=== PATIENT | female | born 1985 | race Caucasian/White ===

== ENCOUNTER 2017-06-30 20:42 | Observation (INO) ==
[2017-06-30] MEDS ORDERED: Sodium Chloride 0.9% 500 ML PRIMARY IV ONE (20:53)
[2017-06-30] MEDS ORDERED: Sodium Chloride 0.9% 1,000 ML PRIMARY IV ONE ×2 (20:53→22:58)
[2017-06-30] MEDS ORDERED: ONDANSETRON 4 MG/2 ML VIAL IVP ONE (20:53)
--- NOTE | 2017-06-30 21:00 | PDOC ---
Female Problem HPI - General Chief Complaint: Vag Complaint/Bleed, <20WK IUP Stated Complaint: POSSIBLE MISCARRIAGE Date Seen by Provider: 06/30/17 Time Seen by Provider: 20:55 Source: POSITIVE: Patient Exam Limitations: POSITIVE: No limitations Nurse's Notes Reviewed & Considered: Yes - Record Incomplete - History of Present Illness Body Location Affected: REPORTS: Genitalia Timing: REPORTS: Abrupt Duration: 1/2 hour Severity: Severe Quality: REPORTS: Cramping, "Pain" Context: REPORTS: Other (Known demise) Location of Pain: REPORTS: Pelvic Cramping Vaginal Bleeding: REPORTS: Abnormal Bleeding, More Severe Than Periods, Passing Clots : REPORTS: Other ( demise at 12 weeks gestation) Sexual History: REPORTS: Active Urinary Symptoms: DENIES: Blood in Urine, Frequent Urination, Discomfort w/ Urination, Burning w/ Urination, Urinary Urgency, Painful Urination, Other Discharge: REPORTS: Vaginal Discharge (Heavy vaginal bleeding) Similar Symptoms Previously: No Recent Care Received: REPORTS: Recently Seen (Was seen earlier today by her health coordinator in [facility], Dr. Onur Moseley) Any Prior Injuries Related to Current Complaint?: No - Patient Home Medications Home Medications: Home Medications NK [NK] 06/30/17 - Patient Allergies Allergies/Adverse Reactions: Allergies 3 Allergy/AdvReac Type Severity Reaction Status Date / Time No Known Allergies Allergy Verified 06/30/17 21:24 ROS - Limitations ROS Limitations: No Limitations Constitution: REPORTS: Chills Cardiovascular: REPORTS: Denies Cardiac Symptoms Respiratory: REPORTS: Denies Resp Symptoms Neurological: REPORTS: Denies Neuro Symptoms Gastrointestinal: REPORTS: Abdominal Pain Endocrine: REPORTS: Denies Symptoms Musculoskeletal: REPORTS: Denies MS Symptoms Genitourinary: REPORTS: Other (Heavy vaginal bleeding) Eyes: REPORTS: Denies Symptoms ENT: REPORTS: Denies Symptoms Skin: REPORTS: Other ( Skin and pale conjunctivae) Lympathic: REPORTS: Denies Lympathic Symptoms Immunologic: POSITIVE: Denies Symptoms Psychiatric: POSITIVE: Denies Psych Symptoms Female Genitourinary Exam - General Appearance General Appearance: POSITIVE: Alert, Cooperative, No Evidence of Trauma, Lethargic - HEENT HEENT: POSITIVE: Head Inspection Nml, Ears Inspection Nml, Nose Inspection Nml, Oral/Dental Inspect. Nml, Pharynx Inspect. Nml, PERRL, EOMI, Pale Conjunctivae - Neck Neck: POSITIVE: Normal Inspection, No Apparent Injury - Respiratory Respiratory: POSITIVE: No Respiratory Distress, Breath Sounds Normal, Chest Non- Tender - Cardiovascular Cardiovascular: POSITIVE: Regular Rate and Rhythm, Heart Sounds Normal, Equal Pulses, Strong Pulses Peripheral Pulses: Radial (R): 3+, Radial (L): 3+ - Abdomen Abdomen: POSITIVE: Soft, Normal Bowel Sounds, Tenderness (Suprapubic tenderness) - Skin Skin: POSITIVE: Intact, Diaphoresis, Pallor - Extremities Extremity: Non-Tender: (All Extremities), Normal ROM: (All Extremities), Normal Inspection: (All Extremities), Pelvis Stable: (All Extremities) - Neurological / Psychological Neurological: POSITIVE: Oriented X3, Motor Normal, Sensation Normal Female Genitourinary Progress - Results Reviewed by me Xrays/CTs/US Reviewed by me: Yes Discussed with Radiologist: Yes Lab Results Reviewed by Me: Yes CBC and BMP: 07/01/17 06:10 06/30/17 20:50 - Patient's Progress Pain Medication Addressed: POSITIVE: No Re-Examine Time: 22:35 Status: POSITIVE: Worsened MDM / ED Course: Patient was evaluated, 2 IVs were started, ultrasound was obtained, blood was sent to the lab for studies. Findings: Ultrasound shows large clot in the cervix with retained products of conception present. Initial CBC shows a normal hemoglobin and hematocrit. After 1 L of fluid H&H had dropped to 10.8 and 32.5. Patient had hypotension with a systolic blood pressure of 61, and a pulse rate of 70. Assessment: Missed AB with heavy bleeding and anemia present. Plan: Dr. Denton the on-call OB doctor was contacted he is taking the patient to the OR for indicated procedures. Patient received 2 units of packed red blood cells. Rhogam Given: No - Consult Consult (If Yes, Name of Consulting MD & Time Called): Yes (Dr. Denton ) Consulting MD will see pt:: POSITIVE: In ED Counseled: POSITIVE: Patient, Family, RE: Lab Results, RE: Radiology Results, RE : DX Patient Care Time - Estimated PCT Patient Care Time (In Minutes): 45 Vital Signs - VS Reviewed Vital Signs Reviewed: Yes Discharge Clinical Impression: Miscarriage, Vaginal bleeding before 22 weeks gestation Discharge Disposition: Transferred to OR Condition: Serious Date Decision to Admit to Inpatient: 06/30/17 Time Decision to Admit to Inpatient: 22:00
[2017-06-30 21:14] LABS: BLOOD UREA NITROGEN 11 mg/dL (7-22); BUN/CREATININE RATIO 18.33 (6-20); MAGNESIUM 1.7 mg/dL (1.6-2.4); SERUM ALBUMIN 4.2 g/dL (3.5-4.8)
[2017-06-30 21:19] LABS: Hematocrit [HCT] 38.1 % (37.0-47.0); Hemoglobin [HGB] 12.9 g/dL (12.0-16.0); MEAN CORPUSCULAR HEMOGLOBIN 29.4 PG (27-31); MEAN CORPUSCULAR VOLUME 86.8 FL (81-99); RED BLOOD COUNT 4.39 10^6/uL (4.20-5.40)
[2017-06-30 21:20] LABS: BASOPHILS # (AUTO) 0.03 10*3/UL; BASOPHILS % (AUTO) 0.4 % (0-1); EOSINOPHILS # (AUTO) 0.14 10*3/UL; EOSINOPHILS % (AUTO) 1.7 % (0-8); LYMPHOCYTES # (AUTO) 2.41 10*3/uL; MEAN CORPUSCULAR HGB CONC 33.9 g/dL (33-37); MEAN PLATELET VOLUME 10.5 FL (7.4-12.2); MONOCYTES # (AUTO) 0.73 10*3/UL (0.3-0.8); MONOCYTES % (AUTO) 8.9 % (5-15); NEUTROPHILS # (AUTO) 4.88 10*3/UL; NEUTROPHILS % (AUTO) 59.5 % (50-80); PLATELET MORPHOLOGY COMMENT NORMAL MORPHOLOGY (NORM); RBC MORPHOLOGY COMMENT NORMAL MORPHOLOGY (NORM); WBC MORPHOLOGY COMMENT NORMAL MORPHOLOGY (NORM)
[2017-06-30 21:54] LABS: Hematocrit [HCT] 32.5 % (37.0-47.0); Hemoglobin [HGB] 10.8 g/dL (12.0-16.0)
--- NOTE | 2017-06-30 22:11 | DI ---
EXAM: US After First Trimester, Transabdominal US , Transvaginal CLINICAL HISTORY: Physician Notes: Tech Comments: TECHNIQUE: Real-time transabdominal obstetrical ultrasound of the maternal pelvis and a second or third trimester with image documentation. Endovaginal imaging was used for better evaluation of the fetus and adnexa. COMPARISON: No relevant prior studies available. FINDINGS: No intrauterine is identified. Uterus: Endometrium is thickened, heterogeneous, with echogenic material, possibly clot in the lower uterine segment, perhaps entering the vagina. This has flow. No parts are identified. Adnexa: The ovaries have normal flow. IMPRESSION: No intrauterine identified. There is an echogenic heterogeneous mildly vascular structure in the lower uterine segment extending into the vagina. Perhaps retained products, in progress/incomplete . No parts identified. Correlate with beta hCG. Correlate for possibility of molar . Recommend close continued clinical follow-up with beta hCG, ultrasound, and exam. [employer] 06/30/17 22:08 Call Doctor Regarding Other, called Dr. Paz on 06/30 22:07 (-07:00)
[2017-06-30] MEDS ORDERED: MIDAZOLAM 5 MG/1 ML ONE (22:35)
[2017-06-30] MEDS ORDERED: KETAMINE 100 MG/1 ML - 5 ML ONE (22:35)
[2017-06-30] MEDS ORDERED: fentaNYL Inj 100 MCG/2 ML VIAL ONE (22:35)
[2017-06-30] MEDS ORDERED: LIDOCAINE MPF 2% - 5 ML (20 MG/1 ML) ONE (22:36)
[2017-06-30] MEDS ORDERED: Sodium Chloride 0.9% vial 10 ML ONE ×2 (22:36→22:38)
[2017-06-30] MEDS ORDERED: PROPOFOL 10 MG/1 ML (200 MG/20 ML) VIAL IV ONE (22:37)
[2017-06-30] MEDS ORDERED: PHENYLEPHRINE 10,000 MCG/1 ML VIAL ONE (22:37)
[2017-06-30] MEDS ORDERED: METHYLERGONOVINE MALEATE 0.2 MG/1 ML VIAL IM ONE (22:58)
[2017-06-30] MEDS ORDERED: Hetastarch 6% + NS 500 ML IV ONE (23:00)
[2017-06-30] MEDS ORDERED: KETOROLAC 15 MG/1 ML VIAL IVP PRN (23:18)
[2017-06-30] MEDS ORDERED: Ondansetron ODT Tab 8 MG TAB PO PRN (23:18)
[2017-06-30] MEDS ORDERED: NORMAL SALINE 10 ML SYRINGE FLUSH IVP PRN (23:18)
--- NOTE | 2017-06-30 23:30 | OB.OP.NOTE ---
Operative Report Surgeon: Man Anesthesia Type: General Anesthesia Provider: Araseli Lau CRNA Surgery Date: 06/30/17 Preoperative Diagnosis: Incomplete Postoperative Diagnosis: Same Procedure: Suction D&C Estimated Blood Loss (mL): 500 Fluids: 2000 ml Complications: None Findings at Surgery: Active bleeding with dilated cervix and POC extruding from the os. Indications for the Procedure: 12 weeks EGA IUP with diagnosis of missed AB earlier today by her physician in [place]. Scheduled for D&C tomorrow, but began bleeding heavily at home this evening. She presented to our ED with heavy bleeding and was noted to have retained POC on US. Description of Procedure: The patient was taken to the operating room and placed supine where general laryngeal mask anesthesia was a ministered. She was then placed in lithotomy position in Davis stirrups. Copious clot was removed from the vagina and perineum. She was prepped and draped in the normal sterile fashion. A weighted speculum was placed in the vagina and the anterior lip of the cervix was grasped with a single tooth tenaculum. A ring forcep was used to remove the products of conception which were extruding from the external cervical os. A 10 mm curved suction curette was then introduced to the uterine fundus and suction was applied. Several passages of suction curettage were then made with return of products of conception and clot. When no further products were returned Sharp curettage was performed with good cry noted in all 4 quadrants. A final passage of suction curettage returned no further tissue or clots. Bimanual massage was performed to assist with hemostasis. The uterus was noted to be normal size and anteverted at the conclusion of the procedure. A single [id number] stitch with 2-0 Vicryl suture was used to achieve hemostasis on the tenaculum site. There were no complications at surgery and the patient left to recovery in good condition. Plan: The patient has received 2 units of blood preoperatively and intraoperatively. A third unit will be given on the floor and she will be observed overnight. Anticipate discharge in the morning.
[2017-07-01] MEDS ORDERED: Lactated Ringers 1,000 ML PRIMARY IV ONE (00:05)
[2017-07-01] MEDS ORDERED: Influenza 17-18 Vaccine (6mo+) Quad 60mcg/0.5ml PF IM ONE (00:11)
[2017-07-01] MEDS: D5-LR 1,000 ML PRIMARY IV SCH ×2 (00:23→08:27)
[2017-07-01 07:11] LABS: Hemoglobin [HGB] 10.7 g/dL (12.0-16.0)
[2017-07-01 07:12] LABS: BASOPHILS # (AUTO) 0.03 10*3/UL; BASOPHILS % (AUTO) 0.4 % (0-1); EOSINOPHILS # (AUTO) 0.07 10*3/UL; Hematocrit [HCT] 31.3 % (37.0-47.0); LYMPHOCYTES # (AUTO) 1.53 10*3/uL; MEAN CORPUSCULAR HEMOGLOBIN 30.6 PG (27-31); MEAN CORPUSCULAR HGB CONC 34.2 g/dL (33-37); MEAN CORPUSCULAR VOLUME 90 FL (81-99); MEAN PLATELET VOLUME 8.3 FL (7.4-12.2); MONOCYTES % (AUTO) 9.5 % (5-15); NEUTROPHILS # (AUTO) 5.07 10*3/UL; NEUTROPHILS % (AUTO) 68.4 % (50-80); PLATELET MORPHOLOGY COMMENT NORMAL MORPHOLOGY (NORM); RBC MORPHOLOGY COMMENT NORMAL MORPHOLOGY (NORM); WBC MORPHOLOGY COMMENT NORMAL MORPHOLOGY (NORM)
--- NOTE | 2017-07-01 07:40 | DCSUMMARY ---
Hospitalization Summary Admit Date: 06/30/17 Discharge Date: 07/01/17 Primary Diagnosis:: Incomplete AB Secondary Diagnosis:: Massive Hemorrhage Hospital Course: The patient presented to the ED last night with heavy bleeding from an incomplete AB at 12 weeks EGA. She was taken for suction D&C which was accomplished without complication. She received 3 units of PRBC, stabilizing at an H/H of 10/31 the following morning. She was discharged to home in good condition on POD 1. She will f/u with her physician in [place]. Exam - Vitals Vital Signs: Vital Signs Temperature 98.9 F Temperature Source Oral Pulse Rate [Pulse Oximeter] 95 Pulse Rate 96 Respiratory Rate 18 Blood Pressure [Right Arm] 101/63 Blood Pressure [Left Arm] 107/64 Blood Pressure 105/67 Pulse Ox 99 Oxygen Flow Rate RA Oxygen Delivery Method Room Air Height 5 ft 5 in Weight 133 lb 3.2 oz
--- NOTE | 2017-07-01 07:41 | PDOC(PROG) ---
Subjective Post Op Day: 1 Pain Management: PO Solitario Catheter: No Flatus: Yes Diet: Regular Ambulating: Yes Concerns / Additional Information: Doing well this morning. H/H 06/01 after 3 U PRBC. She would like to go home. Assesstment / Plan Assessment / Plan: POD 1, doing well. Discharge to home.
[2017-07-01 09:17] VITALS: RESP 20; TEMP 99; O2SAT 100
[2017-07-01 11:03] VITALS: BP 105/67
--- NOTE | 2017-07-01 11:03 | CRNA.PROGR ---
Anesthesia Time - - Start date: 06/30/17 End date: 06/30/17 - Procedure/Recovery Time Anesthesia : Time In: 22:48 Anesthesia : Time Out: 23:28 Anesthesia : Total Time: 40 - Total Anesthesia Time Total Anesthesia Time (minutes): 40 - Other Weight: 60.419 kg Height: 5 ft 5 in Body Mass Index (BMI): 22.1 Physical Status: P4 (Hemorrhage r/t miscarriage-hemodynamically unstable.) Anesthesia Type: General Anesthesia : LMA
--- NOTE | 2017-07-01 11:03 | CRNA.PROGR ---
Post Anesthesia Phase II - Post Anesthesia Phase II Patient Stable and Discharged To: Med/Surg Care Assumed By Surgeon: Sam Conway MD Temperature: 99.0 F Pulse Rate: 96 Respiratory Rate: 20 Blood Pressure: 105/67 Pulse Ox: 100 Total Alexa Score at Discharge: 9 Post Anesthesia Discharge Criteria Met: Yes
--- NOTE | 2017-07-01 11:15 | CRNA.PROGR ---
Anesthesia Note - Progress Notes Anesthesia Progress Note: Laboratory Results 06/30/17 06/30/17 06/30/17 Range/Units 20:50 20:50 20:50 WBC 8.20 (4.8-10.8) 10^3/uL RBC 4.39 (4.20-5.40) 10^6/uL Hgb 12.9 (12.0-16.0) g/dL Hct 38.1 (37.0-47.0) % MCV 86.8 (81-99) FL MCH 29.4 (27-31) PG MCHC 33.9 (33-37) g/dL RDW Std Deviation 39.8 (39-50) fL RDW Coeff of Gene 12.9 (11.5-14.5) % Plt Count 246 (140-350) 10*3/uL MPV 10.5 (7.4-12.2) FL Immature Gran % (Auto) 0.1 (0-5) % Neut % (Auto) 59.5 (50-80) % Lymph % (Auto) 29.4 (10-50) % [place] % (Auto) 8.9 (5-15) % Eos % (Auto) 1.7 (0-8) % Baso % (Auto) 0.4 (0-1) % Immature Gran # (Auto) 0.01 10*3/UL Neut # (Auto) 4.88 10*3/UL Lymph # (Auto) 2.41 10*3/uL [place] # (Auto) 0.73 (0.3-0.8) 10*3/UL Eos # (Auto) 0.14 10*3/UL Baso # (Auto) 0.03 10*3/UL WBC Morphology Comment Normal morphology (NORM) Plt Morphology Comment Normal morphology (NORM) RBC Morph Comment Normal morphology (NORM) PT 11.3 (9.7-11.4) secs INR 1.07 (0.00-5.90) N/A Sodium 141 (135-145) meq/L Potassium 3.6 L (3.8-5.2) meq/L Chloride 106 (98-112) meq/L Carbon Dioxide 21 L (23-33) meq/L Anion Gap 14 (5-20) BUN 11 (7-22) mg/dL Creatinine 0.6 (0.50-1.20) mg/dL Estimated GFR > 60 (>60 ml/min/1.73m(2)) BUN/Creatinine Ratio 18.33 (6-20) Glucose 129 H (78-110) mg/dL Calculated Osmolality 292.0 (267-292) mOsm/kg Calcium 9.2 (8.7-10.7) mg/dL Magnesium 1.7 (1.6-2.4) mg/dL Total Bilirubin 0.3 (0.3-1.2) mg/dL AST 17 (8-39) IU/L ALT 25 (9-52) IU/L Alkaline Phosphatase 48 (38-126) IU/L Total Protein 6.9 (6.1-8.0) g/dL Albumin 4.2 (3.5-4.8) g/dL Globulin 2.8 (2.50-4.10) g/dL Albumin/Globulin Ratio 1.50 (1.3-2.0) mg/g HCG, Quant mIU/ML Blood Type Antibody Screen Crossmatch 06/30/17 06/30/17 06/30/17 Range/Units 20:50 20:50 21:51 WBC (4.8-10.8) 10^3/uL RBC (4.20-5.40) 10^6/uL Hgb 10.8 L (12.0-16.0) g/dL Hct 32.5 L (37.0-47.0) % MCV (81-99) FL MCH (27-31) PG MCHC (33-37) g/dL RDW Std Deviation (39-50) fL RDW Coeff of Gene (11.5-14.5) % Plt Count (140-350) 10*3/uL MPV (7.4-12.2) FL Immature Gran % (Auto) (0-5) % Neut % (Auto) (50-80) % Lymph % (Auto) (10-50) % [place] % (Auto) (5-15) % Eos % (Auto) (0-8) % Baso % (Auto) (0-1) % Immature Gran # (Auto) 10*3/UL Neut # (Auto) 10*3/UL Lymph # (Auto) 10*3/uL [place] # (Auto) (0.3-0.8) 10*3/UL Eos # (Auto) 10*3/UL Baso # (Auto) 10*3/UL WBC Morphology Comment (NORM) Plt Morphology Comment (NORM) RBC Morph Comment (NORM) PT (9.7-11.4) secs INR (0.00-5.90) N/A Sodium (135-145) meq/L Potassium (3.8-5.2) meq/L Chloride (98-112) meq/L Carbon Dioxide (23-33) meq/L Anion Gap (5-20) BUN (7-22) mg/dL Creatinine (0.50-1.20) mg/dL Estimated GFR (>60 ml/min/1.73m(2)) BUN/Creatinine Ratio (6-20) Glucose (78-110) mg/dL Calculated Osmolality (267-292) mOsm/kg Calcium (8.7-10.7) mg/dL Magnesium (1.6-2.4) mg/dL Total Bilirubin (0.3-1.2) mg/dL AST (8-39) IU/L ALT (9-52) IU/L Alkaline Phosphatase (38-126) IU/L Total Protein (6.1-8.0) g/dL Albumin (3.5-4.8) g/dL Globulin (2.50-4.10) g/dL Albumin/Globulin Ratio (1.3-2.0) mg/g HCG, Quant 1102.2 mIU/ML Blood Type AB POSITIVE Antibody Screen Negative Crossmatch See Detail 07/01/17 Range/Units 06:10 WBC 7.4 (4.8-10.8) 10^3/uL RBC 3.50 L (4.20-5.40) 10^6/uL Hgb 10.7 L (12.0-16.0) g/dL Hct 31.3 L (37.0-47.0) % MCV 90 (81-99) FL MCH 30.6 (27-31) PG MCHC 34.2 (33-37) g/dL RDW Std Deviation (39-50) fL RDW Coeff of Gene 14.4 (11.5-14.5) % Plt Count 127 L (140-350) 10*3/uL MPV 8.3 (7.4-12.2) FL Immature Gran % (Auto) (0-5) % Neut % (Auto) 68.4 (50-80) % Lymph % (Auto) 20.7 (10-50) % [place] % (Auto) 9.5 (5-15) % Eos % (Auto) 1.0 (0-8) % Baso % (Auto) 0.4 (0-1) % Immature Gran # (Auto) 10*3/UL Neut # (Auto) 5.07 10*3/UL Lymph # (Auto) 1.53 10*3/uL [place] # (Auto) 0.70 (0.3-0.8) 10*3/UL Eos # (Auto) 0.07 10*3/UL Baso # (Auto) 0.03 10*3/UL WBC Morphology Comment Normal morphology (NORM) Plt Morphology Comment Normal morphology (NORM) RBC Morph Comment Normal morphology (NORM) PT (9.7-11.4) secs INR (0.00-5.90) N/A Sodium (135-145) meq/L Potassium (3.8-5.2) meq/L Chloride (98-112) meq/L Carbon Dioxide (23-33) meq/L Anion Gap (5-20) BUN (7-22) mg/dL Creatinine (0.50-1.20) mg/dL Estimated GFR (>60 ml/min/1.73m(2)) BUN/Creatinine Ratio (6-20) Glucose (78-110) mg/dL Calculated Osmolality (267-292) mOsm/kg Calcium (8.7-10.7) mg/dL Magnesium (1.6-2.4) mg/dL Total Bilirubin (0.3-1.2) mg/dL AST (8-39) IU/L ALT (9-52) IU/L Alkaline Phosphatase (38-126) IU/L Total Protein (6.1-8.0) g/dL Albumin (3.5-4.8) g/dL Globulin (2.50-4.10) g/dL Albumin/Globulin Ratio (1.3-2.0) mg/g HCG, Quant mIU/ML Blood Type Antibody Screen Crossmatch Vital Signs - Last Taken Temperature 99.0 F 07/01/17 11:03 Pulse Rate 96 07/01/17 11:03 Respiratory Rate 20 11/30/17 11:03 Blood Pressure 105/67 07/01/17 11:03 Pulse Ox 100 07/01/17 11:03 Dismissed home this morning . No apparent sequelae at this point. It seems transfused amount was adequate.
== END 2017-07-01 09:15 | disposition home or self-care (01) ==
LOC: ER 20:42 → MED/SURG 22:41 → OR 22:41 → MED/SURG 22:46
PROVIDERS: ADMIT Obstetrics & Gynecology; ATTEND Obstetrics & Gynecology